=== PATIENT | female | born 1995 | race Caucasian/White ===

== ENCOUNTER 2017-01-28 13:04 | Emergency (ER) | payer OTHER ==
[2017-01-28 13:07] VITALS: TEMP 97.7
[2017-01-28 14:07] LABS: BASO % 0.7 % (0.0-2.0); EOS # 0.1 K/uL (0.0-0.7); EOS % 2.9 % (0.0-4.0); HEMATOCRIT 34.1 % (34.0-47.0); LYMPH # 0.8 K/uL (1.0-4.3); LYMPH % 21.4 % (20.0-40.0); MEAN CELL VOLUME 80.5 fL (81.0-99.0); MEAN CORPUSCULAR HEMOGLOBIN 26.7 pg (27.0-31.0); MEAN CORPUSCULAR HGB CONC 33.2 g/dL (33.0-37.0); MEAN PLATELET VOLUME 10.3 fL (7.2-11.7); MONO # 0.4 K/uL (0.0-0.8); MONO % 11.4 % (0.0-10.0); RED CELL DISTRIBUTION WIDTH 15.2 % (11.5-14.5); WHITE BLOOD COUNT 3.7 K/uL (4.8-10.8)
[2017-01-28 14:14] LABS: RBC URINE 1 /hpf (0-3); URINE BILIRUBIN NEGATIVE (NEGATIVE); URINE BLOOD NEGATIVE (NEGATIVE); URINE COLOR Yellow (YELLOW); URINE GLUCOSE (UA) NORMAL (Normal); URINE KETONE NEGATIVE (NEGATIVE); URINE LEUKOCYTE ESTERASE NEG Leu/uL (Negative); URINE PROTEIN NEGATIVE (NEGATIVE); URINE UROBILINOGEN NORMAL mg/dL (0.2-1.0); WBC URINE 2 /hpf (0-5)
--- NOTE | 2017-01-28 14:15 | RAD ---
HISTORY: SOB COMPARISON: Comparison chest 06/12/2015 TECHNIQUE: Chest PA and lateral FINDINGS: LUNGS: Poor inspiration with low lung volumes, crowded bronchovascular markings and mild bibasilar atelectasis. Additionally, the interstitial markings are slightly increased and coarsened ; rule out concomitant sequela of reactive/ inflammatory airway disease. PLEURA: No significant pleural effusion identified. No pneumothorax apparent. CARDIOVASCULAR: Normal. OSSEOUS STRUCTURES: No significant abnormalities. VISUALIZED UPPER ABDOMEN: Normal. OTHER FINDINGS: None. IMPRESSION: Poor inspiration with low lung volumes, crowded bronchovascular markings and mild bibasilar atelectasis. Additionally, the interstitial markings are slightly increased and coarsened ; rule out concomitant sequela of reactive/ inflammatory airway disease.
--- NOTE | 2017-01-28 14:31 | C.PDOC ---
History Of Present Illness 21 yr old female presents to the ER for evaluation of a small lesion at the 6 o' clock position on the left breast. Patient also reports of a full body rash which she developed in [place] and is unclear for how long. Patient denies fever, chills, chest pain, SOB, nausea, vomiting, abdominal pain, weakness or numbness. Time Seen by Provider: 01/28/17 13:13 Chief Complaint (Nursing): Breast Problem History Per: Patient History/Exam Limitations: no limitations Onset/Duration Of Symptoms: Days Past Medical History Reviewed: Historical Data, Nursing Documentation, Vital Signs Vital Signs: Last Vital Signs Temp 97.7 F 01/28/17 13:06 Pulse 85 01/28/17 13:06 Resp 18 01/28/17 13:06 BP 126/76 01/28/17 13:06 Pulse Ox 98 01/28/17 15:14 Family History: States: No Known Family Hx - Social History Hx Tobacco Use: No Hx Alcohol Use: Yes Hx Substance Use: No - Immunization History Hx Tetanus Toxoid Vaccination: Yes Hx Influenza Vaccination: Yes Hx Pneumococcal Vaccination: No Review Of Systems Except As Marked, All Systems Reviewed And Found Negative. Constitutional: Negative for: Fever, Chills Cardiovascular: Negative for: Chest Pain Gastrointestinal: Negative for: Nausea, Vomiting, Abdominal Pain Skin: Positive for: Rash (Full body rash.), Other ((+) Small lesion on the left breast. ) Neurological: Negative for: Weakness, Numbness Physical Exam - Physical Exam Appears: Non-toxic, No Acute Distress Skin: Warm, Dry, Rash (Full body scaly, dark, excoriated rash. Concentrated to the axilla, abdomen and back and extends to upper and lower extremities.), Other (Left Breast - 0.5x 0.5 cm, round, mobile lesion. No discharge. No fluctuance. ) Head: Atraumatic, Normacephalic Oral Mucosa: Moist Chest: Symmetrical, No Tenderness Cardiovascular: Rhythm Regular, No Murmur Respiratory: Normal Breath Sounds, No Rales, No Rhonchi, No Stridor, No Wheezing Extremity: Normal ROM, No Swelling Neurological/Psych: Oriented x3, Normal Speech, Normal Motor ED Course And Treatment - Laboratory Results Result Diagrams: 01/28/17 14:02 01/28/17 14:31 O2 Sat by Pulse Oximetry: 98 (RA) Pulse Ox Interpretation: Normal - Other Rad CXR X-Ray: Viewed By Me, Read By Radiologist Interpretation: HISTORY: SOB. COMPARISON: Comparison chest 06/12/2015. TECHNIQUE: Chest PA and lateral. FINDINGS: LUNGS: Poor inspiration with low lung volumes, crowded bronchovascular markings and mild bibasilar atelectasis. Additionally, the interstitial markings are slightly increased and coarsened ; rule out concomitant sequela of reactive/ inflammatory airway disease. PLEURA: No significant pleural effusion identified. No pneumothorax apparent. CARDIOVASCULAR: Normal. OSSEOUS STRUCTURES: No significant abnormalities. VISUALIZED UPPER ABDOMEN: Normal. OTHER FINDINGS: None. IMPRESSION: Poor inspiration with low lung volumes, crowded bronchovascular markings and mild bibasilar atelectasis. Additionally, the interstitial markings are slightly increased and coarsened ; rule out concomitant sequela of reactive/ inflammatory airway disease. Medical Decision Making Medical Decision Making: PLAN: * US - Left Breast * CXR * Drug Screen * CBC * CMP * HCG * Urinalysis Patient with small , non fluctuant breast, discreet breast nodule. SONO done, pending results. Patient will follow up in clinic. Also full body rash, will follow up in clinic. Disposition Counseled Patient/Family Regarding: Need For Followup - Disposition Referrals: [facility] at [facility] [Outside] Disposition: HOME/ ROUTINE Disposition Time: 15:11 Condition: STABLE Additional Instructions: Follow up in clinic. Call Dr. Galindo for ultrasound results on Tuesday. [phone] Instructions: Acute Rash (DC), Breast Mass (ED) Forms: Gen Discharge Inst Slovenian - POA Present On Arrival: None - Clinical Impression Clinical Impression: Cyst of breast, Rash of body - Scribe Statement The provider has reviewed the documentation as recorded by the Willi [place] Provider Attestation: All medical record entries made by the Willi were at my direction and personally dictated by me. I have reviewed the chart and agree that the record accurately reflects my personal performance of the history, physical exam, medical decision making, and the department course for this patient. I have also personally directed, reviewed, and agree with the discharge instructions and disposition.
[2017-01-28 14:52] LABS: CHLORIDE 103 mmol/L (98-107); SODIUM 141 mmol/L (132-148)
[2017-01-28 14:53] LABS: POTASSIUM 4.2 mmol/L (3.6-5.2)
[2017-01-28 14:55] LABS: ALKALINE PHOSPHATASE 54 U/L (38-126); ALT/SGPT 22 U/L (9-52); AST/SGOT 34 U/L (14-36); BILIRUBIN,TOTAL 0.5 mg/dL (0.2-1.3); BLOOD UREA NITROGEN 12 mg/dL (7-17); CALCIUM 9.5 mg/dl (8.6-10.4); CARBON DIOXIDE 23 mmol/L (22-30); GFR AFRICAN-AMERICAN > 60; GLUCOSE,RANDOM 89 mg/dL (65-105); TOTAL PROTEIN 8.4 g/dL (6.3-8.3)
[2017-01-28 15:22] VITALS: BP 110/72; PULSE 70; RESP 20; O2SAT 100
--- NOTE | 2017-01-28 17:41 | US ---
PROCEDURE: LIMITED LEFT BREAST ULTRASOUND HISTORY: lession , left breat, 6 o'clock COMPARISON: None TECHNIQUE: Ultrasonography of left breast was performed in limited fashion at the 6 o'clock radius in longitudinal and transverse views. FINDINGS: Fibroglandular parenchyma in this radius appears unremarkable from the nipple to the chest wall. There is no cyst or solid mass identified here to correspond to patient's clinical symptoms. IMPRESSION: Unremarkable limited left breast ultrasound at the 6 o'clock radius, as discussed above. Further clinical correlation is recommended. BIRADS 1 Negative however clinical follow-up is advised.
== END 2017-01-28 15:23 | disposition home or self-care (01) ==
LOC: C.ER 13:04
DX: R21 Rash and other nonspecific skin eruption (principal); N63 Unspecified lump in breast

== ENCOUNTER 2018-01-10 16:04 | Emergency (ER) | payer OTHER ==
[2018-01-10 16:19] VITALS: BP 116/70; PULSE 64; RESP 18; TEMP 98.3; O2SAT 100
[2018-01-10 16:55] LABS: HCG,QUALITATIVE URINE NEGATIVE (NEGATIVE)
--- NOTE | 2018-01-10 16:56 | C.PDOC ---
History Of Present Illness 22 y/o female with history of Constipation presents to ED with c/o low abdominal "cramping" pain for 2 days. Patient denies menses, , nausea, vomiting or any other complaints at this time. Time Seen by Provider: 01/10/18 16:42 Chief Complaint (Nursing): Abdominal Pain History Per: Patient History/Exam Limitations: no limitations Onset/Duration Of Symptoms: Days Current Symptoms Are (Timing): Still Present Past Medical History Reviewed: Historical Data, Nursing Documentation, Vital Signs Vital Signs: Last Vital Signs Temp 98.3 F 01/10/18 16:16 Pulse 64 01/10/18 16:16 Resp 18 01/10/18 16:16 BP 116/70 01/10/18 16:16 Pulse Ox 100 01/10/18 17:18 Surgical History: No Surg Hx Family History: States: No Known Family Hx - Social History Hx Tobacco Use: No Hx Alcohol Use: Yes Hx Substance Use: No - Immunization History Hx Tetanus Toxoid Vaccination: Yes Hx Influenza Vaccination: Yes Hx Pneumococcal Vaccination: No Review Of Systems Constitutional: Negative for: Fever, Chills Gastrointestinal: Positive for: Abdominal Pain. Negative for: Nausea, Vomiting Genitourinary: Negative for: Vaginal Discharge, Vaginal Bleeding Physical Exam - Physical Exam Appears: Non-toxic, No Acute Distress Skin: Warm, Dry, No Rash Head: Atraumatic, Normacephalic Eye(s): bilateral: Normal Inspection Oral Mucosa: Moist Neck: Supple Cardiovascular: Rhythm Regular Respiratory: Normal Breath Sounds, No Rales, No Rhonchi, No Wheezing Gastrointestinal/Abdominal: Soft, No Tenderness, No Guarding, No Rebound, Other (Tympanic on epigastric, dull on right side) Back: No CVA Tenderness Neurological/Psych: Oriented x3, Normal Speech, Normal Cognition ED Course And Treatment - Laboratory Results Lab Interpretation: Normal (ua + mild blood, no UTI) Urine POC: Negative O2 Sat by Pulse Oximetry: 100 (RA) Pulse Ox Interpretation: Normal Medical Decision Making Medical Decision Making: constipated vs MP Disposition Doctor Will See Patient In The: Office Counseled Patient/Family Regarding: Studies Performed, Diagnosis - Disposition Referrals: Count Includes [facility] [Outside] [facility] [Outside] [facility] at [facility] [Outside] Disposition: HOME/ ROUTINE Disposition Time: 17:16 Condition: GOOD Additional Instructions: darlene un purgante ahora (la botella de Citrato de Magnesio entero) y re-evalua jacobo molestia del abdomen despues de usar el sondra 2-3 veces Cambios de dieta Prueba de [place] NEGATIVO Prescriptions: Magnesium Citrate [Citrate of Magnesia] 300 ml PO ONCE PRN #1 solution PRN Reason: Constipation Instructions: Constipation, Adult (DC), Menstrual Cramps (DC) Forms: [employer] (Colombian) Print Language: SETSWANA - Clinical Impression Clinical Impression: Abdominal cramping - Scribe Statement The provider has reviewed the documentation as recorded by the Scribe Will Hines All medical record entries made by the Scribe were at my direction and personally dictated by me. I have reviewed the chart and agree that the record accurately reflects my personal performance of the history, physical exam, medical decision making, and the department course for this patient. I have also personally directed, reviewed, and agree with the discharge instructions and disposition.
[2018-01-10 16:58] LABS: SQUAMOUS EPITHIAL 34 /hpf (0-5); URINE BACTERIA OCC (<OCC); URINE BILIRUBIN NEGATIVE (NEGATIVE); URINE BLOOD 1+ (NEGATIVE); URINE CLARITY Hazy (Clear); URINE COLOR Yellow (YELLOW); URINE GLUCOSE (UA) NORMAL (Normal); URINE LEUKOCYTE ESTERASE NEG Leu/uL (Negative); URINE PROTEIN NEGATIVE (NEGATIVE)
== END 2018-01-10 17:27 | disposition home or self-care (01) ==
LOC: C.ER 16:04
DX: R10.30 Lower abdominal pain, unspecified (principal)

== ENCOUNTER 2018-07-07 12:27 | Emergency (ER) | payer OTHER ==
[2018-07-07 12:48] VITALS: RESP 18; O2SAT 100
--- NOTE | 2018-07-07 13:25 | C.PDOC ---
History Of Present Illness 22 y/o female presents to the ED for evaluation of itching to the bilateral hands for the last 3 days with associated swelling and pain to the hands. Denies any trauma. 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 States she wears gloves at work. Patient denies any known allergies. She denies new lotions, soaps, or other possible exposures. Patient reports taking motrin for the pain with little relief. Time Seen by Provider: 07/07/18 12:39 Chief Complaint (Nursing): Abnormal Skin Integrity History Per: Patient History/Exam Limitations: no limitations Onset/Duration Of Symptoms: Days (x 3) Current Symptoms Are (Timing): Still Present Location Of Injury: Right: Hand, Left: Hand Quality Of Symptoms: Painful, Itching, Swollen Past Medical History Reviewed: Historical Data, Nursing Documentation, Vital Signs Vital Signs: Last Vital Signs Temp 98.4 F 07/07/18 12:42 Pulse 67 07/07/18 12:42 Resp 18 07/07/18 12:42 BP 136/82 07/07/18 12:42 Pulse Ox 100 07/07/18 12:42 - Medical History PMH: No Chronic Diseases Surgical History: No Surg Hx Family History: States: Unknown Family Hx - Social History Hx Tobacco Use: No Hx Alcohol Use: Yes Hx Substance Use: No - Immunization History Hx Tetanus Toxoid Vaccination: No Hx Influenza Vaccination: No Hx Pneumococcal Vaccination: No Review Of Systems Except As Marked, All Systems Reviewed And Found Negative. Constitutional: Negative for: Fever, Chills Cardiovascular: Negative for: Chest Pain Respiratory: Negative for: Cough, Shortness of Breath Musculoskeletal: Positive for: Hand Pain (B/L hand itchiness, with pain and swelling) Neurological: Negative for: Weakness, Numbness, Headache, Dizziness Physical Exam - Physical Exam Appears: Non-toxic, No Acute Distress Skin: No Rash (or urticaria), Other (Erythema to right hand, + warm to touch) Head: Atraumatic, Normacephalic Eye(s): bilateral: Normal Inspection Nose: No Discharge Oral Mucosa: Moist Throat: No Erythema Neck: Normal ROM, Supple Chest: Symmetrical Cardiovascular: Rhythm Regular Respiratory: Normal Breath Sounds, No Accessory Muscle Use, Other (No respiratory distress) Gastrointestinal/Abdominal: Soft, No Tenderness Extremity: Normal ROM, Capillary Refill (< 2 sec), Swelling (Mild edema of the right > left hand), Other (Neurovascularly intact) Pulses: Left Radial: Normal, Right Radial: Normal Neurological/Psych: Oriented x3, Normal Speech, Normal Motor, Normal Sensation ED Course And Treatment O2 Sat by Pulse Oximetry: 100 (on RA) Pulse Ox Interpretation: Normal Medical Decision Making Medical Decision Makin:18 Plan: - 50 mg PO Benadryl - 20 mg PO Pepcid - 650 mg PO Tylenol - 40 mg PO Prednisone - Reassessed and is stable Dx: Allergic Reaction/ Contact Dermatitis - continue Benadryl, Pepcid, and Prednisone - Tylenol Prn for pain - Follow up with Derm Clinic or PMD if symptoms persists - Return to ED if symptoms worsen Patient verbalizes understanding and is in agreement with plan Patient is stable for discharge Disposition Counseled Patient/Family Regarding: Studies Performed, Diagnosis, Need For Followup, Rx Given - Disposition Referrals: [facility] [Outside] Disposition: HOME/ ROUTINE Disposition Time: 14:14 Condition: IMPROVED Additional Instructions: YE SILVA, thank you for letting us take care of you today. Your provider was Fozia Mullins MD and you were treated for FINGER PAIN. The emergency medical care you received today was directed at your acute symptoms. If you were prescribed any medication, please fill it and take as directed. It may take several days for your symptoms to resolve. Return to the Emergency Department if your symptoms worsen, do not improve, or if you have any other problems. Please contact your doctor or call one of the physicians/clinics you have been referred to that are listed on the Patient Visit Information form that is included in your discharge packet. Bring any paperwork you were given at discharge with you along with any medications you are taking to your follow up visit. Our treatment cannot replace ongoing medical care by a primary care provider outside of the emergency department. Thank you for allowing the [facility] team to be part of your care today. Prescriptions: DiphenhydrAMINE [Benadryl] 25 mg PO BID PRN #30 cap PRN Reason: Itching / Pruritus Famotidine [Pepcid] 20 mg PO DAILY #20 tab predniSONE [predniSONE Tab] 20 mg PO TID #15 tab Instructions: Contact Dermatitis (DC) Forms: [employer] (Kyrgyz), [employer] (Gibraltarian) Print Language: GHANAIAN - Clinical Impression Clinical Impression: Allergic contact dermatitis - PA / DINNER COOK / Resident Statement MD/DO has reviewed & agrees with the documentation as recorded. - Scribe Statement The provider has reviewed the documentation as recorded by the Scribleonela Flynn All medical record entries made by the Nidhiibleonela were at my direction and personally dictated by me. I have reviewed the chart and agree that the record accurately reflects my personal performance of the history, physical exam, medic al decision making, and the department course for this patient. I have also personally directed, reviewed, and agree with the discharge instructions and disposition.
[2018-07-07 14:39] VITALS: BP 112/62; PULSE 63; TEMP 97.6
== END 2018-07-07 14:41 | disposition home or self-care (01) ==
LOC: C.ER 12:27
DX: L23.9 Allergic contact dermatitis, unspecified cause (principal)